=== PATIENT | female | born 1965 | race Caucasian/White ===

== ENCOUNTER 2017-01-29 10:58 | Emergency (ER) | payer MEDICARE, MEDICAID ==
[~2017-01-29 10:58] MED LIST: ADVIL100 M1 PO; ALPRAZOLAM1 M2 PO; ANTIDEPRESSANT; AUGMENTIN875 MG/TA1 PO; BLACK COHOSH40 MG PO; CEPHALEXIN500 M1 PO; COLACE100 MG PO; COMPAZINE10 M PO; COMPAZINE25 MG/SUPP PR; COMPLEX PO; CYCLOBENZAPRINE10 M1 PO; FERROUS SU325 ( 65 ) PO; FERROUS SULFAT325 M1 PO; GABAPENTIN100 M1 PO; METRONIDAZOLE500 M3 PO; NORCO 5-325 TA1 EACH PO; NORCO 5/325 TAB1 TAB PO; NORCO 5/3251 TA1 PO; PAROXETINE HCL20 M2 PO; PRILOSEC10 MG PO; PRILOSEC20 MG PO; STOOL SOFTENER1 EAC1 PO; TYLENOL325 M2 PO; ULTRAM50 MG PO; VITAMIN D250000 UNI1 PO; ZOFRAN ODT4 MG/UDTAB PO; ZOFRAN4 M1 PO; ZOLOFT50 MG PO; [UNRECOGNIZED DRUG - OTHER] PO
[2017-01-29 11:53] LABS: BASO % 0.6 % (0-2); EOS % 0.4 % (0-7); HCT-HEMATOCRIT 41.9 % (34.0-49.0); HGB-HEMOGLOBIN 14.4 gm/dl (12.0-15.5); IMMATURE GRANULOCYTES ABSOLUTE 0.02 tho/cmm (0-0.03); IMMATURE GRANULOCYTES PERCENT 0.3 % (0-0.3); LYMPH % 20.6 % (20-45); LYMPH ABSOLUTE COUNT 1.5 tho/cmm (0.8-4.5); MCH (MEAN CORPUSCULAR HGB) 35.6 pg (28.0-32.0); MCHC MEAN CORPUSCULAR HGB CONC 34.4 % (32.0-36.0); MCV (MEAN CELL VOLUME) 103.7 fl (82.0-96.0); MEAN PLATELET VOLUME 10.1 cmc (9.4-12.4); MONO % 8.3 % (0-12); MONOCYTE ABSOLUTE COUNT 0.6 tho/cmm (0.0-1.2); NEUTROPHIL ABSOLUTE COUNT 4.9 tho/cmm (1.6-8.0); NEUTROPHIL-AUTOMATED 4.9 tho/cmm (1.6-8.0); NEUTROPHILS % 69.8 % (40-80); PLATELET COUNT 236 tho/cmm (150-450); RED BLOOD COUNT 4.04 mil/cmm (4.00-5.20); RED CELL DISTRIBUTION WIDTH 13.8 % (12.4-16.4); WHITE BLOOD COUNT 7.1 tho/cmm (4.0-10.0)
[2017-01-29 12:08] LABS: ALB/GLOB RATIO 0.8 (0.8-2.0); ALBUMIN 3.3 g/dl (3.5-5.0); ALKALINE PHOSPHATASE 127 U/L (33-138); ALT/SGPT 77 U/L (12-78); BILIRUBIN,TOTAL 0.4 mg/dl (0-1.5); BLOOD UREA NITROGEN 7 mg/dl (6-24); CALCIUM 8.9 mg/dl (8.5-10.5); CARBON DIOXIDE-VENOUS 20 mmol/L (22-32); CHLORIDE 108 mmol/l (96-110); CREATININE 0.73 mg/dl (0.50-1.10); LIPASE 69 U/L (73-393); SODIUM 143 mmol/L (135-145); eGFR VALUE FOR BLACK >90 mL/Min
[2017-01-29 12:11] LABS: ANION GAP 19 mmol/L (0-20)
[2017-01-29 12:12] LABS: AST/SGOT 138 U/L (10-40); GLUCOSE 59 mg/dL (70-110); POTASSIUM 4.2 mmol/L (3.7-5.1)
[2017-01-29 12:21] LABS: URINE BILIRUBIN NEGATIVE (NEG); URINE BLOOD NEGATIVE (NEG); URINE GLUCOSE (UA) NEGATIVE (NEG); URINE KETONE SMALL (NEG); URINE LEUKOCYTE ESTERASE POSITIVE (NEG); URINE NITRITE NEGATIVE (NEG); URINE PROTEIN SMALL (NEG)
[2017-01-29 12:27] LABS: URINE APPEARANCE CLEAR; URINE COLOR YELLOW
[2017-01-29 12:33] LABS: URINE BACTERIA 1+; URINE MUCUS 1+; URINE RBC 0 /[HPF] (0-5)
[2017-01-29] MEDS ORDERED: NORCO 5-325 TA1 EACH PO (14:11)
[2017-05-22] MEDS ORDERED: OMEPRAZOLE20 M3 PO (15:51)
[2017-05-22] MEDS ORDERED: SPIRIVA18 MC1 INH (15:52)
[2017-05-22] MEDS ORDERED: AMBIEN5 M1 PO (15:52)
[2017-05-22] MEDS ORDERED: CYMBALTA30 M1 (15:53)
[2017-05-22] MEDS ORDERED: PRINIVIL10 M1 (15:53)
[2017-05-22] MEDS ORDERED: IMODIUM A-D2 M4 (15:54)
[2017-05-22] MEDS ORDERED: VENTOLIN HFA18 G2 PO (15:54)
[2017-05-22] MEDS ORDERED: CYCLOBENZAPRINE10 M1 PO (15:54)
[2017-05-22] MEDS ORDERED: TYLENOL WITH C1 EACH PO (15:55)
[2017-05-22] MEDS ORDERED: FLONASE ALLERG9.9 ML (15:55)
== END 2017-01-29 14:53 ==
LOC: EDMED 10:58
PROVIDERS: Emergency Medicine
DX: R10.11 Right upper quadrant pain (principal); K21.9 Gastro-esophageal reflux disease without esophagitis; F17.200 Nicotine dependence, unspecified, uncomplicated
CPT/HCPCS: J1170; J2405; J7030; Q9967